=== PATIENT | female | born 1980 | race Caucasian/White ===

== ENCOUNTER 2017-07-11 14:43 | Emergency (ER) | payer OTHER ==
[2017-07-11] MEDS: DIPHENHYDRAMINE 50 MG INJ IV (18:40)
[2017-07-11] MEDS: morphine 4 MG/ML VIAL IV (18:41)
[2017-07-11] MEDS: SOD CHLORIDE 0.9% 1,000 ML IV (18:41)
[2017-07-11] MEDS: METOCLOPRAMIDE 10 MG INJ IV (18:41)
[2017-07-11] MEDS: ONDANSETRON 4 MG INJ IV (18:41)
[2017-07-11 19:01] LABS: ADD MAN DIFF? NO
[2017-07-11 19:04] LABS: BASOPHILS % 0.2 % (0.0-2.0); EOSINOPHILS # 0.2 10^3/ul (0.0-0.5); EOSINOPHILS % 2.1 % (0.0-7.0); HEMATOCRIT 42.8 % (37.0-47.0); HEMOGLOBIN 13.8 g/dl (12.0-16.0); LYMPHOCYTES # 2.5 10^3/ul (0.8-2.9); LYMPHOCYTES % 30.9 % (15.0-51.0); MEAN CORPUSCULAR HGB CONC 32.2 g/dl (32.0-37.0); MEAN CORPUSCULAR VOLUME 86.8 fl (82.0-101.0); MEAN PLATELET VOLUME 10.8 fl (7.4-10.4); MONOCYTE # 0.5 10^3/ul (0.3-0.9); NEUTROPHILS % 60.4 % (39.0-77.0); PLATELET COUNT 227 10^3/UL (140-415); RED BLOOD COUNT 4.93 10^6/ul (4.20-5.40); RED CELL DISTRIBUTION WIDTH 13.7 % (11.5-14.5)
[2017-07-11 19:04] LABS: WHITE BLOOD COUNT 8.2 10^3/ul (4.8-10.8)
[2017-07-11 19:26] LABS: INR 0.94; PROTIME 12.7 Sec (11.9-14.9)
[2017-07-11 19:32] LABS: ANION GAP 16 (8-16); BLOOD UREA NITROGEN 8 mg/dl (7-20); CALCIUM 9.2 mg/dl (8.4-10.2); CARBON DIOXIDE 29 mmol/L (21-31); CHLORIDE 105 mmol/L (97-110); CREATININE 0.79 mg/dl (0.44-1.00); GLUCOSE 99 mg/dl (70-220); POTASSIUM 3.8 mmol/L (3.5-5.1); SODIUM 146 mmol/L (135-144)
[2017-07-11 19:37] LABS: PARTIAL THROMBOPLASTIN TIME 31.6 Sec (25.0-35.0)
[2017-07-11 19:45] LABS: TROPONIN-I < 0.012 ng/ml (0.00-0.12)
[2017-07-11] MEDS: IOHEXOL 350MG/ML 50 ML BTL (20:36)
== END 2017-07-11 23:48 | disposition home or self-care (01) ==
LOC: FTE 14:43 → E/R 23:48
DX: R51 Headache (principal); R20.2 Paresthesia of skin; I10 Essential (primary) hypertension; R07.9 Chest pain, unspecified
CPT/HCPCS: 36415; 70450; 70496; 70498; 70544; 70551; 80048; 81025; 84484; 85025; 85610; 85730; 93005; 96374; 96375; 99285-25